=== PATIENT | male | born 1995 | race African-American/Black ===

== ENCOUNTER 2016-06-25 17:18 | Emergency (ER) | payer SELFPAY ==
[~2016-06-25] VITALS: Ht 185.4 cm; Wt 136.8 kg
[~2016-06-25 17:18] MED LIST: INTUNIV2 MG PO
[2016-06-25 17:27] VITALS: BP 146/73; TEMP 97.8
[2016-06-25 18:28] VITALS: PULSE 80
== END 2016-06-25 18:28 | disposition home or self-care (01) ==
LOC: COL.ER 17:18
DX: S61.412A Laceration without foreign body of left hand, initial encounter (principal); W45.8XXA Other foreign body or object entering through skin, initial encounter; W22.8XXA Striking against or struck by other objects, initial encounter; Y92.89 Other specified places as the place of occurrence of the external cause

== ENCOUNTER 2020-11-01 17:55 | Emergency (ER) | payer SELFPAY ==
[~2020-11-01] VITALS: Ht 190.5 cm; Wt 113.6 kg
[2020-11-01 18:55] LABS: BASO # 0.1 (0.0-0.2); BASO % 0.3 % (0.0-2.0); EOS % 0.1 % (0-4.0); GRAN # 11.9 (1.4-6.5); GRAN % 79.2 % (42.2-75.2); HEMATOCRIT 44.4 % (42.0-52.0); HEMOGLOBIN 15.7 g/dl (13.5-18.0); LYMPH # 2.2 (1.2-3.4); LYMPH % 14.8 % (20.0-51.0); MEAN CELL VOLUME 90 fl (80.0-100.0); MEAN CORPUSCULAR HEMOGLOBIN 32 pg (27.0-31.0); MEAN CORPUSCULAR HGB CONC 35 g/dl (33.0-37.0); MEAN PLATELET VOLUME 10.6 fl (7.4-10.4); MONO # 0.8 (0.1-0.6); MONO % 5.1 % (1.7-9.3); PLATELET COUNT 301 K/mm3 (130-400); RED BLOOD COUNT 4.94 M/mm3 (4.20-5.60); REDCELL DISTRIBUTION WIDTH-CV 12.6 % (11.5-14.5)
[2020-11-01 19:00] LABS: ALANINE AMINOTRANSFERASE 39 U/L (4-49); ALBUMIN 4.5 gm/dL (3.5-5.0); ALKALINE PHOSPHATASE 68 U/L (50-136); ANION GAP 10 mmol/L (7-16); AST,SGOT 45 U/L (15-37); BILIRUBIN,TOTAL 0.5 mg/dL (0.0-1.0); BLOOD UREA NITROGEN 16 mg/dL (9-20); CALCIUM 9.3 mg/dL (8.4-10.2); CARBON DIOXIDE 25 mmol/L (22-30); CHLORIDE 104 mmol/L (98-107); CREATININE, serum 0.96 (0.66-1.25); GLUCOSE 163 mg/dL (74-106); POTASSIUM 3.6 mmol/L (3.4-5.0); SODIUM 138 mmol/L (137-145); TOTAL PROTEIN 7.5 gm/dL (6.4-8.2)
[2020-11-01 19:13] LABS: TROPONIN-I < 0.012 ng/mL (0.000-0.035)
[2020-11-01] MEDS ORDERED: ZOFRAN ODT4 MG PO (20:46)
[2020-11-01 21:29] VITALS: BP 116/83; PULSE 93; TEMP 98.5
== END 2020-11-01 21:40 | disposition home or self-care (01) ==
LOC: COL.ER 17:55
PROVIDERS: Physician Assistant
DX: R07.89 Other chest pain (principal); R11.2 Nausea with vomiting, unspecified; Z20.822 Contact with and (suspected) exposure to COVID-19
CPT/HCPCS: J2405; J7030

== ENCOUNTER 2021-05-02 21:16 | Emergency (ER) | payer SELFPAY ==
[~2021-05-02] VITALS: Ht 185.4 cm; Wt 129.5 kg
[~2021-05-02 21:16] MED LIST changes: +ZOFRAN ODT4 MG PO
[2021-05-02 21:36] VITALS: TEMP 98.7
[2021-05-02 22:09] VITALS: BP 118/71; PULSE 95
== END 2021-05-02 22:09 | disposition home or self-care (01) ==
LOC: COL.ER 21:16
DX: S39.012A Strain of muscle, fascia and tendon of lower back, initial encounter (principal); S60.512A Abrasion of left hand, initial encounter; S60.511A Abrasion of right hand, initial encounter; S50.812A Abrasion of left forearm, initial encounter; S50.811A Abrasion of right forearm, initial encounter; Y04.8XXA Assault by other bodily force, initial encounter